=== PATIENT | male | born 1960 | race African-American/Black ===

== ENCOUNTER → 2022-03-07 13:06 | Outpatient (BNVA) | payer OTHER, SELFPAY | PROVIDERS: Visit Provider Psychiatry & Neurology Neurology | DX: G20 Parkinson's disease (principal); R44.3 Hallucinations, unspecified | CPT/HCPCS: 99212 ==

== ENCOUNTER → 2023-01-02 08:55 | Outpatient (BNVA) | payer OTHER, SELFPAY | PROVIDERS: PCP Nurse Practitioner Family; Visit Provider Nurse Practitioner Family | DX: G20 Parkinson's disease (principal); R44.3 Hallucinations, unspecified; R26.9 Unspecified abnormalities of gait and mobility; R29.898 Other symptoms and signs involving the musculoskeletal system | CPT/HCPCS: Q3014 ==

== ENCOUNTER 2023-12-11 11:37 | Outpatient (AMB) | payer OTHER, SELFPAY ==
--- NOTE | 2023-12-11 11:37 | MHC.OFFVIS ---
Intake Visit Reasons: Follow up - confirmed Intake Note: Patient presents f/u. Allergies No Known Allergies Allergy (Verified 12/11/23 11:38) Medication List - Last Reconciled 12/11/23 by CHING Olivier albuterol sulfate 90 mcg/actuation (Ventolin HFA) 0 mcg inhalation carbidopa-levodopa 50-200 mg ER 1 tab PO 6 times a day; divide evenly over waking hours 30 days cholecalciferol (vitamin D3) 50 mcg PO DAILY clonazepam 0.5 mg PO BID 30 days clonazepam 1 mg PO BEDTIME 30 days cyanocobalamin (vitamin B-12) 0 mcg PO entacapone 200 mg orally 5 x's per day; Take w/ Carbidopa-Levodopa (1st 5 doses of the day) 30 days furosemide 40 mg PO DAILY hydralazine 25 mg PO QID lisinopril 20 mg PO DAILY methadone 95 mg PO DAILY PRN metoprolol succinate ER 50 mg PO DAILY omeprazole 40 mg PO QAM polyethylene glycol 3350 (Gavilax) grams PO ropinirole 1 mg PO QID trazodone 25 mg (1/2 x 50 mg) PO BEDTIME 30 days HPI Comments Details: 63-yr-old male presents for f/u televideo visit, via [employer]. Pt is accompanied by his . Pt reports he had a hospitalization last summer for PNA, and then had a 4 month rehab stay- he came home in May 2023. He has been home since then. Pt's primary concerns are: He continues to have BLE stiffness, some days worse than others. He is not currently doing PT. Pt's current PD medication regimen: CD-LD ER 50-200mg 5 x's per day. Comtan 200mg QID. Ropinirole 1mg qid. Do medication effects last between doses: Does not notice Wakes up at 7am, starts CD-LD 8am, 12pm, 4pm, 8pm, 12am- when he goes to bed. Eats at different times- sometimes doesn't eat breakfast, but does eat later. He never received the Nourianz- was not covered, so Comtan was started instead. ADL's: Needs some help from his . Swallowing: Some- when eating food- so has to be careful to eat slwoly and chew his food well. Drooling: Denies Orthostatic lightheadedness: Sometimes in the morning may feel dizzy. Constipation: Sometimes- uses miralax which helps. Urinary symptoms: No new issues. Tremor: Some tremor- but not bothersome. Dyskinesia: Can have this at times- not bothersome- when this happens his stiffness is better. Stiffness: In The legs mostly. Gait changes: No changes Freezing: Denies Falls: None since he left the rehab in May. Mood: Ok Hallucinations: May see something on the floor. Memory: Maybe not as good. States he may call his , and forget why he called her. Sleep: Varies. Denies REM sleep behaviors. Exercise: He tries to do some exercises at home- has some weights, walks up and down the stairs. [facility] Medical History Asthma COPD (chronic obstructive pulmonary disease) Hallucination HTN (hypertension) Opioid abuse Family History Sister Cancer Sister Dialysis patient Diabetes Social History Household Members: Spouse Housing: House Alcohol intake: never Patient Tobacco Use Status: Former Tobacco user Tobacco use type: Cigarette Review of Systems Const All systems reviewed & are unremarkable except as noted in HPI and below Physical Exam Const General: cooperative and no acute distress Resp Effort & Inspection: normal respiratory effort and able to speak in complete sentences Neuro Other: General: A&O x's 3 Expression: Decreased expression and blink Voice: Soft, mild bradyphrenia Tremor: Mild chin tremor Tone: not assessed Dyskinesia: None observed FFM: Bradykinesia Foot taps: not assessed Gait: unable to assess, pt standing. Psych: Pleasant affect. Telehealth Telehealth Telehealth Platform: [employer] Location of provider rendering services: practice address Location of patient: address on file Patient Identification confirmed using: Name, : Yes Telehealth method: video Patient verbally consented to treatment: Yes Patient verbally consented to billing insurance company: Yes Patient informed of any privacy concerns related to visit: Yes Minutes spent on Phone/Video with Pt.: 38 Assessment & Plan Assessment & Plan (1) Parkinson's disease with dyskinesia: Code(s): G20.B1 - Parkinson's disease with dyskinesia, without mention of fluctuations Category: Medical (2) Rigidity: Code(s): R29.898 - Other symptoms and signs involving the musculoskeletal system Category: Medical (3) Gait difficulty: Code(s): R26.9 - Unspecified abnormalities of gait and mobility Category: Medical (4) Hallucination: Code(s): R44.3 - Hallucinations, unspecified Category: Medical Plan Check labs as ordered- pt may come into clinic to do have labs done. ? Again increase CD-LD ER 50-200mg from 1 tab 5 x's per day to 1 tab 6 x's per day (take every 3-3.5 hrs x's 5 tabs and last tab daily at 12am)- to reduce bradykinesia (stiffness). Increase Entacapone 200mg from 1 tab 4 x's per day to 1 tab 5 x's per day (take with CD-LD). Continue Ropinirole 1mg- 1 tab 4 x's per day Continue Trazodone 25mg daily at bedtime- for sleep. Continue Clonazepam 0.5mg 2 x's per day and 1mg daily at bedtime- for REM sleep behaviors and hallucinations. Mirialax 17 gm daily as needed for constipation. Monitor for hallucinations, as pt has stopped Geodon. Stop Nourianz 20mg-was not covered by insurance. Continue regular physical activity. Consider home PT if stiffness worsens. f/u in 6 months or sooner prn. Medications: Changed From entacapone (Comtan) Take w/ Carbidopa-Levodopa (1st 4 doses of the day) 200 mg PO QID 30 days 120 tabs 6RF To entacapone 200 mg orally 5 x's per day; Take w/ Carbidopa-Levodopa (1st 5 doses of the day) 30 days 150 tabs 6RF Discontinued nitrofurantoin macrocrystal must administer with a meal/food Discontinued Reason: Patient Completed Course 100 mg PO QID 10 days 40 caps 0RF istradefylline (Nourianz) Discontinued Reason: Insurance Denied 20 mg PO DAILY 30 days 30 tabs 6RF Coding Level of Care Code Tele Est Pt Level 4 (14574) Complex EM visit Add On G2211 Diagnoses Parkinson's disease with dyskinesia G20.B1 Rigidity R29.898 Gait difficulty R26.9 Hallucination R44.3
== END 2023-12-11 16:32 | disposition home or self-care (01) ==
LOC: HO.HSMS 11:37
PROVIDERS: PCP Nurse Practitioner Family; Visit Provider Nurse Practitioner Family
DX: G20.B1 Parkinson's disease with dyskinesia, without mention of fluctuations (principal); R29.898 Other symptoms and signs involving the musculoskeletal system; R26.9 Unspecified abnormalities of gait and mobility; R44.3 Hallucinations, unspecified
CPT/HCPCS: 99214; G2211

== ENCOUNTER → 2023-12-11 11:37 | Outpatient (BNVA) | payer OTHER, SELFPAY | PROVIDERS: PCP Nurse Practitioner Family; Visit Provider Nurse Practitioner Family ==

== ENCOUNTER 2024-07-30 11:15 | Outpatient (AMB) | payer OTHER, SELFPAY ==
--- NOTE | 2024-07-30 11:39 | A.OFFVIS_ITS ---
Intake Visit Reasons: Follow up Intake Note: patient presents for folllow up. Allergies No Known Allergies Allergy (Verified 07/30/24 11:43) Medication List - Last Reconciled 07/30/24 by CHING Olivier albuterol sulfate 90 mcg/actuation (Ventolin HFA) 0 mcg inhalation carbidopa-levodopa 50-200 mg ER 1 tab PO 6 times a day; divide evenly over waking hours 30 days cholecalciferol (vitamin D3) 50 mcg PO DAILY clonazepam 0.5 mg PO BID 30 days clonazepam 1 mg PO BEDTIME 30 days cyanocobalamin (vitamin B-12) 0 mcg PO entacapone 200 mg orally 5 x's per day; Take w/ Carbidopa-Levodopa (1st 5 doses of the day) 30 days furosemide 40 mg PO DAILY hydralazine 25 mg PO QID lisinopril 20 mg PO DAILY methadone 95 mg PO DAILY PRN metoprolol succinate ER 50 mg PO DAILY omeprazole 40 mg PO QAM polyethylene glycol 3350 (Gavilax) grams PO ropinirole 1 mg PO QID trazodone 25 mg (1/2 x 50 mg) PO BEDTIME 30 days HPI Comments Details: 63-yr-old male presents for f/u visit of Parkinson's. Pt is accompanied by his . Pt reports he has been having increasing BLE stabbing pains. Sleeping with his legs elevated helps some. Denies back pain, bothersome LE swelling, skin discoloration. Pt's current PD medication regimen: CD-LD ER 50-200mg 6 x's per day. Comtan 200mg QID. Ropinirole 1mg qid. Do medication effects last between doses: Does not notice Wakes up at 7am, starts CD-LD 8am, 12pm, 4pm, 8pm, 11pm, 2am- when he goes to bed. Eats at different times- sometimes doesn't eat breakfast, but does eat later. ADL's: Needing assist Swallowing: Sometimes- he has to follow food w/ water which helps. Drooling: Sometimes at night. Orthostatic lightheadedness: Sometimes.. Constipation: Sometimes. Miralax prn does not seem to help. OTC Mag citrate helps some. Urinary symptoms: No new issues, but urine is dark yellow at times. Tremor: Some tremor- but not bothersome. Dyskinesia: Is overall dyskinetic- not bothersome- he prefers to be dyskinetic rather than stiff. Stiffness: In his legs mostly. Gait changes: States walking is ok- he can do the stairs ok some days. Freezing: Denies Falls: None since he left the rehab in May. Mood: Ok Hallucinations: May see something white, like a handkerchief in the air at night. Memory: Can be good and bad . Asks his for something and then forgets he did. Sleep: Varies. For REM sleep behaviors- may talk, sit up, or fight in his sleep- but does not leave the bed. Exercise: He tries to do some exercises at home- has some weights, walks up and down the stairs. [facility] Medical History Hallucination Asthma COPD (chronic obstructive pulmonary disease) HTN (hypertension) Opioid abuse Family History Sister Cancer Sister Dialysis patient Diabetes Social History Household Members: Spouse Housing: House Alcohol intake: never Patient Tobacco Use Status: Former Tobacco user Tobacco use type: Cigarette Physical Exam Const General: cooperative and no acute distress Resp Effort & Inspection: normal respiratory effort and able to speak in complete sentences Neuro Other: General: A&O x's 3 Expression: Decreased expression and blink Voice: Soft, mild bradyphrenia Tremor: Mild chin tremor Tone: not assessed Dyskinesia: None observed FFM: Bradykinesia Foot taps: not assessed Gait: unable to assess, pt standing. Psych: Pleasant affect. Assessment & Plan Assessment & Plan (1) Parkinson's disease with dyskinesia: Code(s): G20.B1 - Parkinson's disease with dyskinesia, without mention of fluctuations Category: Medical (2) Paresthesia of both lower extremities: Code(s): R20.2 - Paresthesia of skin Category: Medical (3) Anemia: Code(s): D64.9 - Anemia, unspecified Category: Medical (4) Rigidity: Code(s): R29.898 - Other symptoms and signs involving the musculoskeletal system Category: Medical (5) Gait difficulty: Code(s): R26.9 - Unspecified abnormalities of gait and mobility Category: Medical (6) Hallucination: Code(s): R44.3 - Hallucinations, unspecified Category: Medical Plan For BLE pareshesias: Check labs. Trial Gabaoentin 100mg cap- 1-3 caps qhs or 1 cap tid. ? Continue CD-LD ER 50-200mg 1 tab6 x's per day.. Continue Entacapone 200mg from 1 tab 4 x's per day (take with CD-LD). Continue Ropinirole 1mg- 1 tab 4 x's per day Continue Trazodone 25mg daily at bedtime- for sleep. Continue Clonazepam 0.5mg 2 x's per day and 1mg daily at bedtime- for REM sleep behaviors and hallucinations. Try taking Mirialax 17 gm qod scheduled and daily as needed for constipation. Continue regular physical activity. f/u in 6 months or sooner prn. Orders: Orders Comprehensive Met. Panel 07/30/24 R20.2 - Paresthesia of skin, R44.3 - Hallucinations, unspecified, D64.9 - Anemia, unspecified Methylmalonic Acid 07/30/24 R20.2 - Paresthesia of skin, R44.3 - Hallucinations, unspecified, D64.9 - Anemia, unspecified Homocysteine 07/30/24 R20.2 - Paresthesia of skin, R44.3 - Hallucinations, unspecified, D64.9 - Anemia, unspecified TSH reflex Free T4 07/30/24 R20.2 - Paresthesia of skin, R44.3 - Hallucinations, unspecified, D64.9 - Anemia, unspecified Vitamin B12 and Folate 07/30/24 R20.2 - Paresthesia of skin, R44.3 - Hallucinations, unspecified, D64.9 - Anemia, unspecified Folate 07/30/24 R20.2 - Paresthesia of skin, R44.3 - Hallucinations, unspecified, D64.9 - Anemia, unspecified Complete Blood Count Auto Diff 07/30/24 R20.2 - Paresthesia of skin, R44.3 - Hallucinations, unspecified, D64.9 - Anemia, unspecified Ferritin 07/30/24 R20.2 - Paresthesia of skin, R44.3 - Hallucinations, unspecified, D64.9 - Anemia, unspecified IRON PROFILE 07/30/24 R20.2 - Paresthesia of skin, R44.3 - Hallucinations, unspecified, D64.9 - Anemia, unspecified Magnesium 07/30/24 R20.2 - Paresthesia of skin, R44.3 - Hallucinations, unspecified, D64.9 - Anemia, unspecified Medications: New gabapentin 100 - 300 mg (1 - 3 x 100 mg) PO BEDTIME 90 caps 3RF 30 days Changed From ropinirole 1 mg PO QID 360 tabs 2RF To ropinirole 1 mg PO QID 360 tabs 2RF 90 days From carbidopa-levodopa 50-200 mg ER 1 tab PO 6 times a day; divide evenly over waking hours 30 days 180 tabs 6RF To carbidopa-levodopa 50-200 mg ER 1 tab PO 6 times a day; divide evenly over waking hours 730 tabs 2RF 90 days From entacapone 200 mg orally 5 x's per day; Take w/ Carbidopa-Levodopa (1st 5 doses of the day) 30 days 150 tabs 6RF To entacapone 200 mg PO QID 360 tabs 2RF 90 days Coding Level of Care Code Est Pt Level 4 (68394) Complex EM visit Add On G2211 Diagnoses Parkinson's disease with dyskinesia G20.B1 Paresthesia of both lower extremities R20.2 Anemia D64.9 Rigidity R29.898 Gait difficulty R26.9 Hallucination R44.3
== END 2024-07-30 13:40 | disposition home or self-care (01) ==
PROVIDERS: PCP Nurse Practitioner Family; Visit Provider Nurse Practitioner Family
DX: G20.B1 Parkinson's disease with dyskinesia, without mention of fluctuations (principal); R20.2 Paresthesia of skin; D64.9 Anemia, unspecified; R29.898 Other symptoms and signs involving the musculoskeletal system; R26.9 Unspecified abnormalities of gait and mobility; R44.3 Hallucinations, unspecified
CPT/HCPCS: 99214; G2211

== ENCOUNTER → 2024-07-30 11:15 | Outpatient (BNVA) | payer OTHER, SELFPAY | PROVIDERS: PCP Nurse Practitioner Family; Visit Provider Nurse Practitioner Family | DX: G20.B1 Parkinson's disease with dyskinesia, without mention of fluctuations (principal); R20.2 Paresthesia of skin; R29.898 Other symptoms and signs involving the musculoskeletal system; R26.9 Unspecified abnormalities of gait and mobility; R44.3 Hallucinations, unspecified; D64.9 Anemia, unspecified | CPT/HCPCS: 99212 ==

== ENCOUNTER → 2024-09-08 23:59 | Outpatient (BNV) | payer OTHER, SELFPAY | PROVIDERS: PCP Nurse Practitioner Family; Visit Provider Psychiatry & Neurology Neurology | DX: R13.12 Dysphagia, oropharyngeal phase (principal); R27.8 Other lack of coordination; F33.0 Major depressive disorder, recurrent, mild; G20.B2 Parkinson's disease with dyskinesia, with fluctuations | CPT/HCPCS: G0179 ==

== ENCOUNTER 2025-02-15 14:26 | Outpatient (AMB) | payer OTHER, SELFPAY ==
--- NOTE | 2025-02-15 14:18 | A.OFFVIS_ITS ---
Intake Visit Reasons: Infusion Pump Discussion Intake Note: Patient presents for call to discuss infusion pump. Accompanied by: Spouse Allergies morphine Allergy (Mild, Verified 02/15/25 14:22) Itching Medication List - Last Reconciled 02/15/25 by CHING Olivier albuterol sulfate 90 mcg/actuation (Ventolin HFA) 0 mcg inhalation carbidopa-levodopa 50-200 mg ER 1 tab PO 6 times a day; divide evenly over waking hours 90 days cholecalciferol (vitamin D3) 50 mcg PO DAILY clonazepam 0.5 mg PO BID 30 days clonazepam 1 mg PO BEDTIME 30 days cyanocobalamin (vitamin B-12) 0 mcg PO entacapone 200 mg PO QID 90 days furosemide 40 mg PO DAILY gabapentin 100 - 300 mg (1 - 3 x 100 mg) PO BEDTIME 30 days hydralazine 25 mg PO QID lisinopril 20 mg PO DAILY methadone 95 mg PO DAILY PRN metoprolol succinate ER 50 mg PO DAILY omeprazole 40 mg PO QAM polyethylene glycol 3350 (Gavilax) grams PO ropinirole 0.75 mg (3 x 0.25 mg) PO QID 30 days trazodone 25 mg (1/2 x 50 mg) PO BEDTIME 30 days HPI Comments Details: 64-yr-old male presents for f/u televideo visit of Parkinson's. Pt is accompanied by his . Patient's primary concerns today, include increasing generalized dyskinesias, variable sleep due to the dyskinesias, confusion, and constipation.? Patient and had reached out to the office prior to the appointment with these concerns, and patient has been referred to GI.? Additionally, patient was advised to consider newer PD treatment options, such as subcutaneous infusions of carbidopa levodopa or apomorphine. ?Patient states he was open to these, however he did not believe it would be covered by his insurance. Pt's current PD medication regimen: CD-LD ER 50-200mg 6 x's per day. Comtan 200mg QID. Ropinirole 1mg qid. Do medication effects last between doses: He has bothersome wearing off between doses, and thus has greater than 3 hours of off time throughout the day. ADL's: Needing assist Swallowing: Endorses intermittent swallowing difficulty Drooling: Sometimes at night. Orthostatic lightheadedness: Sometimes.. Constipation: Continues to have constipation, using bowel regimen with variable effect Urinary symptoms: No new issues. Tremor: Some tremor- but not bothersome. Dyskinesia: He is increasingly dyskinetic. He has previously preferred to be dyskinetic rather than stiff. Stiffness: In his legs mostly. Gait changes: States walking is ok Freezing: Unsure Falls: Denies recent falls Mood: Ok Hallucinations: Occasional non bothersome, visual hallucinations, such as see ing a light. Memory: reports some increased confusion Sleep: Sleep is variable. Some nights not going to sleep until 4 -5 in the morning. For REM sleep behaviors- may talk, sit up, or fight in his sleep- but does not leave the bed. Exercise: He tries to do some exercises at home. [facility] Medical History Hallucination Asthma COPD (chronic obstructive pulmonary disease) HTN (hypertension) Opioid abuse Family History Sister Cancer Sister Dialysis patient Diabetes Social History Household Members: Spouse Housing: House Alcohol intake: never Patient Tobacco Use Status: Former Tobacco user Tobacco use type: Cigarette Physical Exam Const General: cooperative and no acute distress Resp Effort & Inspection: normal respiratory effort and able to speak in complete sentences Neuro Other: General: A&O x's 3 Expression: Decreased expression and blink Voice: Soft, mild bradyphrenia Tremor: No visible tremor Tone: Not assessed Dyskinesia: Gerardo generalized dyskinesia with cervical and thoracic extension FFM: Dyskinetic Foot taps: not assessed Gait: unable to assess Psych: Pleasant affect. Telehealth Telehealth Telehealth Platform: [email or web address] Location of provider rendering services: practice address Location of patient: address on file Patient Identification confirmed using: Name, : Yes Telehealth method: video Patient verbally consented to treatment: Yes Patient verbally consented to billing insurance company: Yes Patient informed of any privacy concerns related to visit: No Minutes spent on Phone/Video with Pt.: 16 Assessment & Plan Assessment & Plan (1) Parkinson's disease with dyskinesia: Code(s): G20.B1 - Parkinson's disease with dyskinesia, without mention of fluctuations Category: Medical Qualifiers: Fluctuating manifestations: with fluctuating manifestations Qualified Code(s): G20.B2 - Parkinson's disease with dyskinesia, with fluctuations (2) Paresthesia of both lower extremities: Code(s): R20.2 - Paresthesia of skin Category: Medical (3) Rigidity: Code(s): R29.898 - Other symptoms and signs involving the musculoskeletal system Category: Medical (4) Gait difficulty: Code(s): R26.9 - Unspecified abnormalities of gait and mobility Category: Medical (5) Hallucination: Code(s): R44.3 - Hallucinations, unspecified Category: Medical (6) Constipation: Code(s): K59.00 - Constipation, unspecified Category: Medical (7) Dysphagia: Code(s): R13.10 - Dysphagia, unspecified Category: Medical Plan For BLE pareshesias: Continue Gabaoentin 100mg cap- 1-3 caps qhs or 1 cap tid. For Parkinson's: As patient is having greater than 3 hours of bothersome off time per day interspersed with marked bothersome dyskinesia, which raises risk for injury for patient, patient would benefit from optimizing his Parkinson's medication regimen through more sustained medication administration method that would bypass GI metabolism, which is likely negatively impacted by patient's bothersome constipation symptoms. * At this time, we will reduce the ropinirole from 1 mg q.i.d. to 0.75 mg q.i.d.- in hopes this lessens dyskinesias without worsening off time. * Additionally, patient is advised to start Onapgo, continuous subcutaneous apomorphine infusion. * Onapgo starting dose:? 0.5 mg/hour times 16 hours per day, may slowly titrate up by 0.5 mg up to a max of 4 mg per day.? * Bolus dose to be held until optimal continuous infusion dose obtain, then bolus dose 0.5 mg 3 times per day as needed for off time. * Discussed administration, risks and benefits related to subcutaneous Onapgo infusion. * Patient advised we will need to seek insurance prior authorization for Onapgo. 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 * Once optimal Onapgo continuous dose is achieved, we will begin to further wean patient off of some of his oral dopaminergic therapies, starting with the ropinirole. * Continue CD-LD ER 50-200mg 1 tab6 x's per day.. * Continue Entacapone 200mg from 1 tab 4 x's per day (take with CD-LD). * Continue Trazodone 25mg daily at bedtime- for sleep. * Continue Clonazepam 0.5mg 2 x's per day and 1mg daily at bedtime- for REM sleep behaviors and hallucinations. * Continue bowel regimen, and GI consult as ordered Continue regular physical activity. We will follow-up upon review of above, and in 3 months or sooner prn. Medications: New ropinirole 0.75 mg (3 x 0.25 mg) PO QID 360 tabs 6RF 30 days Discontinued ropinirole Discontinued Reason: Doctor's Order 1 mg PO QID 90 days 360 tabs 2RF Coding Level of Care Code Tele Est Pt Level 4 (05085) Diagnoses Parkinson's disease with dyskinesia and fluctuating manifestations G20.B2 Fluctuating manifestations: with fluctuating manifestations Paresthesia of both lower extremities R20.2 Rigidity R29.898 Gait difficulty R26.9 Hallucination R44.3 Constipation K59.00 Dysphagia R13.10
--- OUTSIDE RECORDS SUMMARY | 2025-02-15 15:05 | XMS_ITS | Clinical Summary ---
Author Organization [facility] Address [address] [place] [id number] Phone Care Team Providers Care Round Boner Name Role Phone Alfonso Hoang MD Primary Care Provider Social History Tobacco Use Types Packs/Day Years Used Date Smoking Tobacco: Never Assessed Education Answer Date Recorded Are you interested in more education? Not on elly e 02/19/2023 Are you concerned about learning? Not on file 02/19/2023 No 02/19/2023 No 02/19/2023 Digital Access Answer Date Recorded No 02/19/2023 No 02/19/2023 Reliable internet access at home? Not on file 02/19/2023 Device with a working camera? Not on file Sex and Gender Information Value Date Recorded Sex Assigned at Not on file Legal Sex Male 9:07 AM EDT Gender Identity Not on file Sexual Orientation Not on file Plan of Treatment Not on file Medical Devices Not on file Care Teams Round Boner Relationship Specialty Start Date End Date Alfonso Hoang MD [address] [place] [address] [address] [place] [address] [email or web address] PCP - General Family Medicine 02/19/23 Additional Source Comments The information contained in this document represents components of the legal health record. It is not the complete legal health record.[facility]
--- OUTSIDE RECORDS SUMMARY | 2025-02-15 15:05 | XMS_ITS | Clinical Summary ---
Author Organization [facility] Address [address] [place] [address] Care Team Providers Care Lidding Machine Operator Name Role Phone Seven Borrero ONCOLOGY RN Primary Care Prov ider Source Comments PLEASE NOTE, if this patient is a minor, it may be UNLAWFUL to discuss sensitive information that is contained in these records (such as FAMILY PLANNING, MENTAL HEALTH or SUBSTANCE ABUSE) with the minor patient's parent or other person without the patient's specific authorization.[facility] Allergies Active Allergy Reactions Criticality Noted Date Comments Morphine 08/05/2023 Medications Comp.Stocking,Th igh,Long,X-Lrg miscIndications: Lymphedema of both lower extremities 1 Each by miscellaneous route once daily. Use daily. Dx: chronic lower leg lymphedema. 2 pairs. 2 Each 0 01/31/20 15 Active sennosides (SENNA) 8.6 mg tabletIndication s:Constipation due to opioid therapy Take 1 Tab by mouth nightly at bedtime. 02/02/20 16 Active nebulizer and compressorIndica tions:COPD with asthma and status asthmaticus ([facility]) UAD x 99 years; dispense nebulizer and tubing and mouthpiece/mask 1 Each 08/01/19 21 Active methadone (DOLOPHINE) 10 mg tabletIndication s:Opioid dependence in remission ([facility]) On 95mg daily per methadone clinic. 11/28/19 22 Active ferrous sulfate 325 mg (65 mg iron) tablet Take 1 Tablet by mouth once daily with breakfast 90 Tablet 3 03/11/20 22 Active GAVILAX 17 gram/dose powderIndication s:Constipation, unspecified constipation type DISSOLVE 17GRAMS (1 CAPFUL) IN 8 OUNCES (1 GLASS) OF WATER AND TAKE BY MOUTH 510 g 5 01/16/20 23 Active entacapone (COMTAN) 200 mg tablet TAKE 1 TABLET BY MOUTH FOUR TIMES A DAY ALONG WITH CARBIDOPA-LEVODOP A (1ST 4 DOSES OF THE DAY) 01/10/20 23 Active traZODone (DESYREL) 50 mg tablet 01/14/20 23 Active rOPINIRole (REQUIP) 1 mg tablet Take 1 mg by mouth 4 (four) times daily 11/21/19 23 Active clonazePAM (KLONOPIN) 0.5 mg tablet TAKE 1 TABLET BY MOUTH TWICE A DAY (IN THE MORNING AND AFTERNOON) 12/26/19 23 Active clonazePAM (KLONOPIN) 1 mg tablet TAKE 1 TABLET BY MOUTH 30 MINUTES BEFORE BEDTIME FOR 30 DAYS 12/28/19 23 Active ipratropium-albu teroL (DUONEB) 0.5 mg-3 mg(2.5 mg base)/3 mL nebulizer solutionIndicati ons:COPD with asthma and status asthmaticus ([facility]) Use every 4-6 hours as needed for SOB 90 mL 2 08/05/19 24 Active carbidopa-levodo pa (SINEMET CR) 50-200 mg per tablet Take 1 Tablet by mouth 6 (six) times daily 540 Tablet 1 08/05/19 24 Active MISCELLANEOUS MEDICAL SUPPLY MISCIndications: COPD with asthma and status asthmaticus ([facility]),Babar on's disease with fluctuating manifestations, unspecified whether dyskinesia present ([facility]),Urinary incontinence, unspecified type 1 box large gloves for daily use x99 years 1 Each 01/07/20 24 Active MISCELLANEOUS MEDICAL SUPPLY MISCIndications: COPD with asthma and status asthmaticus ([facility]),Babar on's disease with fluctuating manifestations, unspecified whether dyskinesia present ([facility]),Urinary incontinence, unspecified type 2 packs of incontinence wipes to use daily x99 years 2 Each 11 01/07/20 24 Active MISCELLANEOUS MEDICAL SUPPLY MISCIndications: COPD with asthma and status asthmaticus ([facility]),Babar on's disease with fluctuating manifestations, unspecified whether dyskinesia present ([facility]),Urinary incontinence, unspecified type 2 reusable bed liners x99 years 2 Each 01/07/20 24 Active MISCELLANEOUS MEDICAL SUPPLY MISCIndications: COPD with asthma and status asthmaticus ([facility]),Babar on's disease with fluctuating manifestations, unspecified whether dyskinesia present ([facility]),Urinary incontinence, unspecified type 3 packs of right fit underwear size 3x x99 years 3 Each 01/07/20 24 Active cyanocobalamin (VITAMIN B-12) 1,000 mcg tablet Take 1 Tablet by mouth once daily 90 Tablet 3 01/13/20 24 Active MISCELLANEOUS MEDICAL SUPPLY MISCIndications: COPD with asthma and status asthmaticus ([facility]),Babar on's disease with fluctuating manifestations, unspecified whether dyskinesia present ([facility]),Urinary incontinence, unspecified type 2 boxes medium gloves daily use x99 years 2 Each 01/14/20 24 Active gabapentin (NEURONTIN) 100 mg capsule TAKE 1 TO 3 CAPSULES ORALLY BEDTIME FOR 30 DAYS 10/12/19 25 Active atorvastatin (LIPITOR) 20 mg tablet Take 1 Tablet by mouth once daily 90 Tablet 11/17/19 25 Active cholecalciferol (VITAMIN D-3) 50 mcg (2,000 unit) capsule Take 1 Capsule by mouth once daily 90 Capsule 11/17/19 25 Active fluticasone-umec lidin-vilanter (TRELEGY ELLIPTA) 200-62.5-25 mcg dsdvIndications: COPD with asthma and status asthmaticus ([facility]) Inhale 1 Puff into the lungs daily 3 Each 11/17/19 25 Active furosemide (LASIX) 40 mg tabletIndication s:Right leg swelling,Swellin g of right upper extremity Take 1 Tablet by mouth once daily 90 Tablet 3 11/17/19 25 Active hydrALAZINE (APRESOLINE) 25 mg tabletIndication s:Essential hypertension Take 1 Tablet by mouth 4 (four) times daily 360 Tablet 3 11/17/19 25 Active lisinopriL 40 mg tablet Take 1 Tablet by mouth once daily 90 Tablet 3 11/17/19 25 Active metoprolol succinate XL (TOPROL-XL) 50 mg 24 hr tabletIndication s:Essential hypertension Take 1 Tablet by mouth daily 90 Tablet 3 11/17/19 25 Active albuterol HFA 90 mcg/actuation inhaler INHALE 2 PUFFS EVERY 6 HOURS NEEDED FOR WHEEZING OR SHORTNESS OF BREATH. 54 Each 1 12/16/19 25 Active Active Problems Problem Noted Date Diagnosed Date Urinary incontinence 01/07/2024 Anxiety 01/14/2023 Chronic heart failure with p reserved ejection fraction ([facility]) 01/18/2022 Overview (01/18/2022): Normal echo December 2021 Hx of colonoscopy 09/30/2017 Overview (09/30/2017): Done 12/11/12 @normal colon and cecum - repeat 7-10 years Umbilical hernia without obstruction and without gangrene 10/07/2016 Overview (10/07/2016): Continue to monitor as no pain and reducible. Parkinson's disease ([facility]) 07/20/2015 Overview (08/16/2015): Seen by Neuro Dr. Smith 08/03/15 and started on carbidopa-levodopa 25/100 mg bid. Lymphedema of both lower extremities 12/02/2013 Erectile dysfunction 08/03/2013 Leg cramps 05/21/2013 Vitamin D deficiency 05/13/2012 Overview (04/12/2013): =18. Right knee pain 04/04/2011 Overview (04/12/2013): MRI 04/02/11 revealed tear/degen. Medial meniscus(posterior horn) & cartilage loss x 3 compartments. HTN (hypertension) 07/04/2008 Hyperlipidemia 07/04/2008 COPD with asthma 07/04/2008 Overview (11/27/2021): November 2021: Not currently seeing pulm, does not want to Hepatitis C 06/28/2008 Overview (04/12/2013): Undetectable Viral Load Opiate dependence on methadone maintenance Overview (04/12/2013): Start methadone 12/25/11. Resolved Problems Problem Noted Date Diagnosed Date Resolved Date Venous stasis ulcer of left lower extremity 07/20/2015 11/16/2024 Overview (10/26/2016): F/u wound care clinic at [facility] with Dr. Soria. S/p left lower leg wound irrigation and debridement with application of neg pressure wound therapy via Dr. Brownlee 10/14/16 at [facility] GERD (gastroesophageal reflux disease) 06/28/2014 11/16/2024 Morbid obesity ([facility]) 07/04/2008 11/16/2024 Encounters Date Type Department Care Team Description 11/19/2024 Results Follow-Up [address] [address] Seven Borrero FNP 11/16/2024 3:20 PM EDT Office Visit [address] [address] Seven Borrero FNP from Last 3 Months Immunizations Immunization Administration Dates Next Due Flu, Preservative Free 11/27/2021,2019,04/12/2019,05/25,04/29/2017,04/26/2016 Hep A, adult 07/08/2008 History Of Varicella 07/08/2008 INFLUENZA, SEASONAL, INJECTABLE 05/21/2014,04/12 MMR (MMR II/Priorix) 07/08/2008 Moderna COVID-19 Vaccine, re d cap blue label, 12+ Primary Series 11/27/2021 Novel [id number], injectable 07/26/2009 PNEUMOCOCCAL CONJUGATE PCV 13 08/13/2011 PNEUMOCOCCAL CONJUGATE PCV 2 0 (Prevnar 20) 11/16/2024 PNEUMOCOCCAL POLYSACCHARIDE PPV23 (Pneumovax 23) 06/03/2016 Pfizer COVID-19 (Comirnaty), Mrna, Lnp-s, Pf, Erasmo-sucrose, 30 Mcg/0.3 Ml, 12yr+ 11/16/2024 TDAP 03/31/2008 Td (adult), 5 Lf tetanus tox oid (Tenivac), preservative free 12/11/2015 ZOSTER VACCINE, RECOMBINANT (SHINGRIX) Social History Tobacco Use Types Packs/Day Years Used Date Smoking Tobacco: Former Cigarettes Q uit: 02/19/2013 Smokeless Tobacco: Never Tobacco Cessation:Counseling Given: Not Answered Alcohol Use Standard Drinks/Week Comments No 0 (1 standard drink = 0.6 oz pur e alcohol) Social Connections Answer Date Recorded Connectedness 0 01/14/2023 Financial Resource Strain Answer Date R ecorded Financial Resource Strain 0 2022 Stress Answer Date Recorded Stress 0 01/14/2023 Physical Activity Answer Date Recorded Physical Activity 0 03/13/2019 Food Insecurity Answer Date Recorded Food 0 01/14/2023 Transportation Needs Answer Date Record ed Transportation 0 01/14/2023 Housing Stability Answer Date Recorded Housing 0 01/14/2023 Safety and Environment Answer Date Jorge A rded Safety 0 01/14/2023 Utilities Answer Date Recorded Utilities 0 01/14/2023 Employment Answer Date Recorded Employment 0 03/13/2019 Sex and Gender Information Value Date Recorded Sex Assigned at Male 04/29/2017 11:11 AM PDT Legal Sex Male 11:36 AM PDT Gender Identity Male 04/29/2017 11:11 AM PDT Sexual Orientation Straight 04/29/2017 11 :11 AM PDT Last Filed Vital Signs Vital Sign Reading Time Taken Comments Blood Pressure 123/74 11/16/2024 3:46 PM EDT Pulse 69 11/16/2024 3:46 PM EDT Temperature 36.2 C (97.1 F) 11/16/2024 3:46 PM EDT Respiratory Rate 18 11/16/2024 3:46 PM EDT Oxygen Saturation 96% 11/27/2021 4:35 PM EDT Inhaled Oxygen Concentration - - Weight 95.6 kg (210 lb 12.8 oz) 11/16/2024 3:46 PM EDT Height 182.9 cm (6') 11/27/2021 4:35 PM EDT Body Mass Index 28.59 11/27/2021 4:35 PM EDT Plan of Treatment Health Maintenance Due Date Last Done Comments Anxiety Screening 1960 Medicare Annual Wellness Visit 09/18/1977 CT Colonography 09/18/2004 FIT/gFOBT 09/18/2004 Fecal DNA 09/18/2004 Flexible Sigmoidoscopy 09/18/2004 Imm-Hepatitis B (1 of 3 - Ri sk 3-dose series) 2019 Colonoscopy 12/11/2022 12/11/2012, 12/11/2012 Colorectal Cancer Screening 12/11/2022 Alcohol and Drug Screen 07/21/2024 08/05/19, 01/14/2023, 08/22/2020, Additional history exists Depression Annual Screen 07/21/2024 08/05/2023, 08/2019 Abdominal Aortic Aneurysm Screening 09/18/2024 Falls Prevention 09/18/2024 Imm-Zoster, Recombinant (2 of 2) 01/11/2025 11/17/19 Imm-Influenza (#1) 2025 11/27/2021, 1 08/18/2020, 05/05/2020, Additional history exists [id number] ( season) 2025 11/16/2024, 03/31/2023, 11/27/2021, Additional history exists Lipid Screening 11/16/2025 11/16/2024, 02/18, 09/29/2017, Additional history exists Tobacco Screening 11/16/2025 11/16/2024 Imm-DTaP/Tdap/Td (3 - Td or Tdap) 12/10/2025 016, 03/31/2008 Diabetes Screening 11/17/2027 11/16/2024, 0 11/16/2024, 02/19/2023, Additional history exists HIV Screening Completed 09/29/2017 Imm-Pneumococcal 50+ Completed 11/16/2024, 06/03/2016, 08/13/2011 Procedures Procedure Name Priority Date/Time Associated Diagnosis Comments OTHER ORDERS SCANNED DOCUMENT 02/07/2025 3:00 AM EDT OTHER ORDERS SCANNED DOCUMENT 02/02/2025 3:00 AM EDT HEMOGLOBIN GLYCOSYLATED A1C Routine 11/16/2024 4:42 PM EDT Examination, medical, general Parkinson's disease with fluctuating manifestations, unspecified whether dyskinesia present (CMS & HHS-HCC) Uncomplicated opioid dependence ([facility]) Other specified abnormal findings of blood chemistry THYROID CASCADING REFLEX PANEL Routine 11/16/2024 4:42 PM EDT Examination, medical, general Parkinson's disease with fluctuating manifestations, unspecified whether dyskinesia present (CMS & HHS-HCC) Uncomplicated opioid dependence (CMS & HHS-HCC) Other abnormal findings on diagnostic imaging of central nervous system LIPID PANEL Routine 11/16/2024 4:42 PM EDT Examination, medical, general Parkinson's disease with fluctuating manifestations, unspecified whether dyskinesia present (CMS & HHS-HCC) Uncomplicated opioid dependence (CMS & HHS-HCC) Other specified abnormal findings of blood chemistry COMPREHENSIVE METABOLIC PANEL Routine 11/16/2024 4:42 PM EDT Examination, medical, general Parkinson's disease with fluctuating manifestations, unspecified whether dyskinesia present (CMS & HHS-HCC) Uncomplicated opioid dependence (CMS & HHS-HCC) BLOOD COUNT COMPLETE AUTO&AUTO DIFRNTL WBC Routine 11/16/2024 4:42 PM EDT Examination, medical, general Parkinson's disease with fluctuating manifestations, unspecified whether dyskinesia present (CMS & HHS-HCC) Uncomplicated opioid dependence (CMS & HHS-HCC) ANTIBODY HIV-1&HIV-2 SINGLE RESULT Routine 09/29/2017 10:21 AM EDT Screening for venereal disease COLONOSCOPY Routine 12/11/2012 from Last 3 Months or Most Recently Relevant to Health Maintenance Results * OTHER ORDERS SCANNED DOCUMENT (02/07/2025 3:00 AM EDT) Only the most recent of2 resultswithin the time period is included. 02/07/2025 3:00 AM EDT Seven Borrero ONCOLOGY RN SCAN OTHER ORDERS Final Result * THYROID CASCADING REFLEX PANEL (11/16/2024 4:42 PM EDT) TSH 0.57 0.40 - 4.50 mIU/L [facility] Blood Blood / Unknown 11/16/2024 4 :42 PM EDT 11/16/2024 4:43 PM EDT Narrative [facility] - 11/18/2024 10:48 AM EDT FASTING:YES PATIENT UNABLE TO VOID; ADVISED TO RETURN FOR COLLECTION. Seven Fajardo Adair ONCOLOGY RN LAB - BLOOD DRAW E dited Result - Final [facility] [address] [address], [employer] [facility] [address] [place] [address] * (ABNORMAL) BLOOD COUNT COMPLETE AUTO&AUTO DIFRNTL WBC (11/16/2024 4:42 PM EDT) WHITE BLOOD CELL COUNT 6.8 3.8 - 10.8 Thousand/ uL [facility] RED BLOOD CELL COUNT 3.46(L) 4.20 - 5.80 Million/u L [facility] HEMOGLOBIN 10.3(L) 13.2 - 17.1 g/dL [facility] HEMATOCRIT 32.9(L) 38.5 - 50.0 % [employer] [facility] MCV 95.1 80.0 - 100.0 fL [facility] [place] [employer] MCH 29.8 27.0 - 33.0 pg [facility] MCHC 31.3(L) 32.0 - 36.0 g/dL [employer] [facility] Comment: For adults, a slight decrease in the calculated MCHC value (in the range of 30 to 32 g/dL) is most likely not clinically significant; however, it should be interpreted with caution in correlation with other red cell parameters and the patient's clinical condition. RDW 13.8 11.0 - 15.0 % [employer] [facility] PLATELET COUNT 252 140 - 400 Thousand/ uL [employer] [facility] MPV 10.3 7.5 - 12.5 fL [employer] [facility] ABSOLUTE NEUTROPHILS 3,862 1,500 - 7,800 cells/uL [employer] [facility] ABSOLUTE LYMPHOCYTES 2,094 850 - 3,900 cells/uL [employer] [facility] ABSOLUTE MONOCYTES 388 200 - 950 cells/uL [employer] [facility] ABSOLUTE EOSINOPHILS 408 15 - 500 cells/uL [employer] [facility] ABSOLUTE BASOPHILS 48 0 - 200 cells/uL [employer] [facility] NEUTROPHILS PCT 56.8 % [facility] LYMPHOCYTES 30.8 % [facility] MONOCYTES 5.7 % [facility] [employer] [facility] EOSINOPHILS 6.0 % [facility] AGNHipscanS [employer] [facility] BASOPHILS 0.7 % [facility] [employer] [facility] Blood Blood / Unknown 11/16/2024 4 :42 PM EDT 11/16/2024 4:43 PM EDT Narrative [facility] - 11/18/2024 10:48 AM EDT FASTING:YES PATIENT UNABLE TO VOID; ADVISED TO RETURN FOR COLLECTION. us Seven Borrero [facility] LAB - BLOOD DRAW E dited Result - Final Performing Organization Address [facility] Co de Phone Number [facility] [address] [address], [employer] [address] [address] * HEMOGLOBIN GLYCOSYLATED A1C (11/16/2024 4:42 PM EDT) HEMOGLOBIN A1C 5.2 <5.7 % [employer] [facility] Comment: For the purpose of screening for the presence of diabetes: <5.7% Consistent with the absence of diabetes 5.7-6.4% Consistent with increased risk for diabetes (prediabetes) > or =6.5% Consistent with diabetes This assay result is consistent with a decreased risk of diabetes. Currently, no consensus exists regarding use of hemoglobin A1c for diagnosis of diabetes in children. According to [place] Diabetes Association (ADA) guidelines, hemoglobin A1c <7.0% represents optimal control in non- diabetic patients. Different metrics may apply to specific patient populations. Standards of Medical Care in Diabetes(ADA). Blood Blood / Unknown 11/16/2024 4 :42 PM EDT 11/16/2024 4:43 PM EDT Narrative [facility] - 11/18/2024 10:48 AM EDT FASTING:YES PATIENT UNABLE TO VOID; ADVISED TO RETURN FOR COLLECTION. us Seven Borrero [facility] LAB - BLOOD DRAW F inal Result Performing Organization Address City/[facility]/ZIP Co de Phone Number [facility] [address] [address], [employer] [facility] [address] [place] [address] * (ABNORMAL) LIPID PANEL (11/16/2024 4:42 PM EDT) CHOLESTEROL, TOTAL 180 <200 mg/dL [facility] HDL CHOLESTEROL 34(L) > OR = 40 mg/dL [employer] [facility] TRIGLYCERIDES 132 <150 mg/dL [facility] LDL-CHOLESTEROL 121(H) 99 mg/dL (calc) [employer] [facility] Comment: Reference range: <100 Desirable range <100 mg/dL for primary prevention; <70 mg/dL for patients with CHD or diabetic patients with > or = 2 CHD risk factors. LDL-C is now calculated using the Abdi calculation, which is a validated novel method providing better accuracy than the Friedewald equation in the estimation of LDL-C. Tommie LOPEZ et al. YARA. 2013;310(19): 2873-6234 (http://education.Zang/faq/ZTN844) CHOL/HDLC RATIO 5.3(H) <5.0 (calc) [employer] [facility] NON-HDL CHOLESTEROL 146(H) <130 mg/dL (calc) [employer] Comment: For patients with diabetes plus 1 major ASCVD risk factor, treating to a non-HDL-C goal of <100 mg/dL (LDL-C of <70 mg/dL) is considered a therapeutic option. Blood Blood / Unknown 11/16/2024 4 :42 PM EDT 11/16/2024 4:43 PM EDT Narrative [facility] - 11/18/2024 10:48 AM EDT FASTING:YES PATIENT UNABLE TO VOID; ADVISED TO RETURN FOR COLLECTION. us Seven HARMANP LAB - BLOOD DRAW F inal Result [facility] [address] [address], [facility] [address] [place] [address] * (ABNORMAL) COMPREHENSIVE METABOLIC PANEL (11/16/2024 4:42 PM EDT) GLUCOSE 94 65 - 99 mg/dL [facility] Comment: Fasting reference interval UREA NITROGEN (BUN) 11 7 - 25 mg/dL [facility] CREATININE (blood) 1.04 0.70 - 1.35 mg/dL [facility] EGFR 80 > OR = 60 mL/min/1. 73m2 [facility] BUN/CREATININE RATIO SEE NOTE: 6 - [facility] Comment: Not Reported: BUN and Creatinine are within reference range. SODIUM 137 135 - 146 mmol/L [facility] POTASSIUM 4.3 3.5 - 5.3 mmol/L [facility] CHLORIDE 102 98 - 110 mmol/L [facility] CARBON DIOXIDE 30 20 - 32 mmol/L [facility] CALCIUM 8.3(L) 8.6 - 10.3 mg/dL [facility] PROTEIN, TOTAL 6.1 6.1 - 8.1 g/dL [facility] ALBUMIN 3.7 3.6 - 5.1 g/dL [facility] GLOBULIN 2.4 1.9 - 3.7 g/dL (calc) [facility] ALBUMIN/GLOBULI N RATIO 1.5 1.0 - 2.5 (calc) [facility] BILIRUBIN, TOTAL 0.4 0.2 - 1.2 mg/dL [facility] ALKALINE PHOSPHATASE 73 35 - 144 U/L [facility] AST 14 10 - 35 U/L [facility] ALT 3(L) 9 - 46 U/L [facility] Blood Blood / Unknown 11/16/2024 4 :42 PM EDT 11/16/2024 4:43 PM EDT Narrative [facility] - 11/18/2024 10:48 AM EDT FASTING:YES PATIENT UNABLE TO VOID; ADVISED TO RETURN FOR COLLECTION. Seven HARMANP LAB - BLOOD DRAW E dited Result - Final [facility] [address] [address], [employer] [address] [address] * HIV-1 & HIV-2 ANTIBODIES (09/29/2017 10:21 AM EDT) [facility] Signature HIV 1 AND 2 ANTIBODY SCREEN NEGATIVE NEGATIVE [facility] Comment: This assay is a 4th generation assay allowing for earlier detection of HIV infection by detecting the presence of the HIV-1 p24 antigen as well as the traditional antibodies to HIV type 1 (including group O) and type 2. Use of a 4th generation assay is the current CDC recommendation for HIV screening. Blood specimen (specimen) Blood / Unknown 09/29/2017 10:21 AM EDT 09/29/2017 10:27 AM EDT Narrative [facility] - 09/29/2017 3:30 PM EDT [facility] [employer] [address] [place] [address] [place] [id number] ORD# [id number] Matteo Kirkpatrick ONCOLOGY RN LAB - BLOOD DRAW Final Result Performing Organization Address City/[facility]/ZIP Co de Phone Number [address] [address], * COLONOSCOPY (12/11/2012) Provider Ochin PROCEDURES Final Result Performing Organization Address [facility]/ZIP Co de Phone Number [facility] [address] [place] [phone], from Last 3 Months or Most Recently Relevant to Health Maintenance Insurance [facility] Member Subscriber Plan / Payer (Ef fective 2018-Present) Name:Bear Manning Relation to Subscriber:Self Name:Bear Manning Payer ID:[id number] Group ID:Not on file Type:Medicare Address: [address] Care Teams Lidding Machine Operator Relationship Specialty Start Date End Date Seven Borrero FNP [address] [place] [address] PCP - General Family Medicine, PROMOTION MANAGER 05/22/20
--- OUTSIDE RECORDS SUMMARY | 2025-02-15 15:05 | XMS_ITS | Data Portability ---
Author Organization [facility], Main Office Address [address] [place] [address] Care Team Providers Care Nightclub Manager Name Role Phone JOSE SUNIL [facility] OTHER Assessment No assessment recorded. Plan of Treatment Reminders Order Date Submit Date Provider Last Modified By Organization Details Last Modified Time Details Appointments None record ed. Lab None record ed. Referral None record ed. Procedures None record ed. Surgeries None record ed. Imaging None record ed. Medication Orders None record ed. Patient TargetsNo targets recorded. Patient InstructionsNo instructions recorded. Reason for Referral None Reported. Problems Name Problem SNOMED Code Status Onset Date Resolution Date Notes Provider Name and Address Organization Details Recorded Time Pneumonia 713446366 Active 2022 CHING MEI [address] , [address], [place], [address], [facility] [address] 3 15:35:28 Parkinson's disease 67075674 Active 2022 CHING MEI [address], [address], [place], [address], [facility] [address] 3 15:35:37 Sepsis 05999682 Active 2022 CHING MEI [address], [address], [place], [address], [facility] [address] 3 15:35:54 Intravenous drug user 400218437 Active 2022 CHING MEI [address], [address], [place], [address], [facility] [address] 3 15:36:26 Essential hypertension 63093516 Active 2022 ERMIASDAVID LORENZ, [facility] [address] , [address], [place], [address], [facility] 3 15:36:40 Paranoid schizophrenia 59333261 Active 2022 ERMIASDAVID LORENZ, [facility] [address], [address], [place], [address], [facility] [employer] [facility] 3 15:36:54 Chronic obstructive pulmonary disease 28128121 Active 2022 ERMIAS LORENZ, [facility] [address], [address], [place], [address], [facility] [employer] [facility] 3 15:37:10 Neurocognitive disorder 770642703 Active 2022 ERMIAS LORENZ, [facility] [address], [address], [place], [address], [facility] [employer] [facility] 3 15:37:59 Mixed anxiety and depressive disorder 974658051 Active 2022 ERMIAS LORENZ, [address], [address], [place], [address], [facility] [employer] [facility] 3 15:57:02 Gastroesophage al reflux disease 593077462 Active 2022 ERMIAS LORENZ, [facility] [address], [address], [place], [address], [facility] [employer] [facility] 3 15:57:33 Vitamin deficiency 45617400 Active 2022 ERMIAS LORENZ, [address], [address], [place], [address], [facility] [employer] [facility] 3 16:07:19 Constipation 90110298 Active 2022 ERMIAS GERDA, [address], [address], [place], [address], [facility] Satya [employer] [facility] 3 16:08:00 Problem Notes None recorded. Medical Equipment None Reported. Allergies Allergen ID Allergen Name Allergen Category Reaction Reaction Severity Criticality Documentation Date Start Date Code Code System Note Provider Name and Address Organization Details Recorded Time 81111 morphine medicatio n Not available Not available Not available 02/06/2023 7052 RxNorm ERMIAS LORENZ [employer] [address] , [address], [place], [address], [facility] 16:03:26 Medications Name Sig Start Date Stop Date Status Note LastModified by Organization Details LastModified Time clonazepam 0.5 mg tablet TAKE 1 TAB BID AND 2 TABS AT BEDTIME 023 active Not Available Not Available Not Avai lable Vitals None Recorded Social History Question Answer Notes LastModified by Organizat [employer] Details LastModified Time Tobacco Smoking Status Former Smoker ERMIAS LORENZ CHING [address] , [address], [place], [address], [facility] 02/06/2023 16:25:23 Do You Have An Advance Directive? Yes Information not available 02/06/2023 What Is Your Level Of Caffeine Consumption? Occasional Information not available 02/06/2023 What Is Your Code Status? Full Code Information not available 02/06/2023 Do You Have A Medical Power Of Center Punch Operator? No Information not available 02/06/2023 What Was The Date Of Your Most Recent Tobacco Screening? 02/06/2023 Information not available 02/06/2023 Do You Have An Out Of Hospital DNR? No Information not available 02/06/2023 Have You Ever Been Counseled For Unhealthy Alcohol Use? No Information not available 02/06/2023 What Is Your Relationship Status? Information not available 02/06/2023 Has Tobacco Cessation Counseling Been Provided? No Information not available 02/06/2023 Have You Used IV Drugs? Yes Information not available 02/06/2023 Sex: Unknown Functional Status Question Answer Note LastModified by Organizat ion Details LastModified Time Do you use any illicit or recreational drugs? Yes hx of IV drug abuse Information not available 02/06/2023 Do you or have you ever used any other forms of tobacco or nicotine? No Information not available 02/06/2023 What is your level of alcohol consumption? Occasional Information not available 02/06/2023 Mental Status None recorded. Family History Nothing Reported. Medical History No medical history recorded. Immunizations Vaccine Type Date Status Note Provider Greg alfonso and Address Organization Details Recorded Time Influenza, adjuvanted, quadrivalent, PF 05/21/2023 completed Naomi alfaro [facility] 07/22/2023 09:58:02 COVID-19, mRNA, LNP-S, bivalent, PF, 30 mcg/0.3 mL dose 03/31/2023 completed Naomi alfaro [facility] 07/22/2023 09:58:41 Past Encounters Encounter ID Performer Location Encounter Start Date Encounter Closed Date Diagnosis/Indication Diagnosis SNOMED-CT Code Diagnosis ICD10 Code Diagnosis Note [id number] CHING MEI [facility] on [address] [place] [address] 02/06/2023 08:55:59 02/11/2023 16:07:[address] Scan Right lower lobe pneumonia: Treated with IV ceftriaxon e and azithromyc intransiti oned to augmentin- completed in hospitalPa carlos has history of aspiration monitor VS/ clinical sx changes. Parkinson's disease 4904 9000 G20 entacapone 200 mg 4 times a day ; Takes With the 1st 4 doses of Carbidopa- Levodopaca rbidopa-le vodopa 50 mg-200 mg 6 times a dayropinir ole 1 mg QIDPT/OT eval and tx Chronic ob structive pulmonary disease 11451336 J44.9 Albuterol 90 mcg 2 puff(s) Inhalation Every 6 hours as needed Wheezing/S hortness of Breathmoni tor for cliniocal sx changes Essential hypertension 12436152 I10 Metoprolol Succinate ER 50 mg 1 tab daily.Aspi rin 81 Milligram dailyfuros emide 40 mg dailyhydrA LAZINE 25 mg 4 times a daylisinop ril 20 mg dailymonit or VSmonitor for clinical sx changes Intravenous drug user 22 1542397 F19.10 Methadone 95 mg daily Neurocogni tive disorder 565983346 R41.9 HX parkinson disease Paranoid schizophrenia 06642501 F20.0 Trazadone 25 mg daily at hs clonazepam 0.5 mg BID 8 am & 2 pmClonazep am 1 mg daily at hsmonitor for clinical sx changes Mixed anxi ety and depressive disorder 210688266 F41.8 clonazepam 0.5 mg BID 8 am & 2 pmClonazep am 1 mg daily at hstrazadon e 25 mg daily at hs for insomniamo nitor for mood and behavior changes Gastroesop hageal reflux disease 786488244 K21.9 omeprazole 40 mg daily.leona tor for GI upset. Vitamin deficiency 66539 002 E56.9 Vitamin D3 2000 u DailyVitam in B12 250 mcg oral tablet DailyMulti vitamin 1 tab Dailymonit or labs Constipation 49086544 K5 9.00 Miralax 17 gram dailyencou raged fluidsmoni tor for clinical sx changes [id number] Alfonso Hoang MD [facility] [address] [place] [address] 02/10/2023 08:29:55 02/12/2023 15:59:23 Pneumonia 921612453 J15.8 see HPIImaging positive for RLLL pneumonia felt related to aspiration secondary to underlying parkinsons dx. Started on rocephin and zithromax, then transition ed to PO augmentin to complete 5 day coursemoni tor respirator y status and need for further imagingspe ech eval to determine need to adjust diet Parkinson's disease 4905 9000 G20 baseline parkinsons sinemet 50-200 mg 6x/dayenta william 200 mg qidmonitor for sx reliefupda te neurology with concerns Chronic ob structive pulmonary disease 35923357 J41.1 continue outpatient medsmonito r respirator y function with recent pneumoniam onitor respirator y status Essential hypertension 59261490 I10 Metoprolol 50 mg qdfurosemi de 40 mg qdhydralaz ine 25 mg qidlisinop ril 20 mg dailymonit or bp and need to titrate Intravenous drug user 22 1611310 F19.10 Methadone 95 mg qdcontinue coordinate with clinic Neurocogni tive disorder 419725395 R41.9 added to PMH Paranoid schizophrenia 88043126 F20.0 carrying dxnot maintained on antipsycho ticmonitor for behaviorsp sych eval prn Mixed anxi ety and depressive disorder 775472757 F41.8 clonazepam 0.5 mg BID 8 am & 2 pmClonazep am 1 mg qhs, 0.5 mg bidmonitor for effect and sedation Gastroesop hageal reflux disease 828261418 K21.9 omeprazole 40 mg qdmonitor for sx Constipation 13489940 K5 9.03 bowel protocolmo nitor for effect [id number] CHING MEI [facility] [address] [place] [address] 02/11/2023 10:28:19 02/13/2023 20:05:[address] Scan Right lower lobe pneumonia: Treated with IV ceftriaxon e and azithromyc intransiti oned to augmentin- completed in hospitalPa carlos has history of aspiration monitor VS/ clinical sx changes. Parkinson's disease 4904 9000 G20 entacapone 200 mg 4 times a day ; Takes With the 1st 4 doses of Carbidopa- Levodopaca rbidopa-le vodopa 50 mg-200 mg 6 times a dayropinir ole 1 mg QIDPT/OT eval and tx Chronic ob structive pulmonary disease 91525017 J44.9 Albuterol 90 mcg 2 puff(s) Inhalation Every 6 hours as needed Wheezing/S hortness of Breathmoni tor for clinical sx changes Essential hypertension 39905227 I10 Metoprolol Succinate ER 50 mg 1 tab daily.Aspi rin 81 Milligram dailyfuros emide 40 mg dailyhydrA LAZINE 25 mg 4 times a daylisinop ril 20 mg dailymonit or VSmonitor for clinical sx changes Intravenous drug user 22 1373752 F19.10 Methadone 95 mg daily Neurocogni tive disorder 713443226 R41.9 HX parkinson disease Paranoid schizophrenia 95878518 F20.0 monitor for clinical sx changesnot on anti-psych consult psych to eval and tx. Mixed anxi ety and depressive disorder 354480782 F41.8 clonazepam 0.5 mg BID 8 am & 2 pmClonazep am 1 mg daily at hstrazadon e 25 mg daily at hs for insomniamo nitor for mood and behavior changes Gastroesop hageal reflux disease 519642541 K21.9 omeprazole 40 mg daily.leona tor for GI upset. Vitamin deficiency 14987 002 E56.9 Vitamin D3 2000 u DailyVitam in B12 250 mcg oral tablet DailyMulti vitamin 1 tab Dailymonit or labs Constipation 25442409 K5 9.00 Miralax 17 gram dailyencou raged fluidsmoni tor for clinical sx changes [id number] CHING MEI [facility] [address] [place] [address] 02/18/2023 08:08:02 02/20/2023 16:04:21 Pneumonia 985924116 J18.9 02/18:LS are CTA, there is no resp distress. breathing easy and unlabored without cough. Ct Scan Right lower lobe pneumonia: Treated with IV ceftriaxon e and azithromyc intransiti oned to augmentin- completed in hospitalPa carlos has history of aspiration monitor VS/ clinical sx changes. Parkinson's disease 4904 9000 G20 entacapone 200 mg 4 times a day ; Takes With the 1st 4 doses of Carbidopa- Levodopaca rbidopa-le vodopa 50 mg-200 mg 6 times a dayropinir ole 1 mg QIDPT/OT eval and tx Chronic ob structive pulmonary disease 44782453 J44.9 Albuterol 90 mcg 2 puff(s) Inhalation Every 6 hours as needed Wheezing/S hortness of Breathmoni tor for clinical sx changes Essential hypertension 71520819 I10 Metoprolol Succinate ER 50 mg 1 tab daily.Aspi rin 81 Milligram dailyfuros emide 40 mg dailyhydrA LAZINE 25 mg 4 times a daylisinop ril 20 mg dailymonit or VSmonitor for clinical sx changes Intravenous drug user 22 5204839 F19.10 Methadone 95 mg daily Neurocogni tive disorder 847388555 R41.9 HX parkinson disease Paranoid schizophrenia 61080221 F20.0 monitor for clinical sx changesnot on anti-psych consult psych to eval and tx. Mixed anxi ety and depressive disorder 330345422 F41.8 02/18:There has been no reported behaviors. clonazepam 0.5 mg BID 8 am & 2 pmClonazep am 1 mg daily at hstrazadon e 25 mg daily at hs for insomniamo nitor for mood and behavior changes Gastroesop hageal reflux disease 299316898 K21.9 omeprazole 40 mg daily.leona tor for GI upset. Vitamin deficiency 27189 002 E56.9 Vitamin D3 2000 u DailyVitam in B12 250 mcg oral tablet DailyMulti vitamin 1 tab Dailymonit or labs Constipation 20918425 K5 9.00 Miralax 17 gram dailyencou raged fluidsmoni tor for clinical sx changes [id number] CHING MEI [facility] [address] [place] [address] 02/24/2023 11:34:25 02/26/2023 12:17:17 Pneumonia 726310095 J18.9 02/18:LS are CTA, there is no resp distress. breathing easy and unlabored without cough. Ct Scan Right lower lobe pneumonia: Treated with IV ceftriaxon e and azithromyc intransiti oned to augmentin- completed in hospitalPa carlos has history of aspiration monitor VS/ clinical sx changes. Parkinson's disease 4904 9000 G20 entacapone 200 mg 4 times a day ; Takes With the 1st 4 doses of Carbidopa- Levodopaca rbidopa-le vodopa 50 mg-200 mg 6 times a dayropinir ole 1 mg QIDPT/OT eval and tx Chronic ob structive pulmonary disease 75188181 J44.9 Albuterol 90 mcg 2 puff(s) Inhalation Every 6 hours as needed Wheezing/S hortness of Breathmoni tor for clinical sx changes Essential hypertension 06353516 I10 Metoprolol Succinate ER 50 mg 1 tab daily.Aspi rin 81 Milligram dailyfuros emide 40 mg dailyhydrA LAZINE 25 mg 4 times a daylisinop ril 20 mg dailymonit or VSmonitor for clinical sx changes Intravenous drug user 22 7229359 F19.10 Methadone 95 mg daily Neurocogni tive disorder 314038131 R41.9 HX parkinson disease Paranoid schizophrenia 49724435 F20.0 monitor for clinical sx changesnot on anti-psych consult psych to eval and tx. Mixed anxi ety and depressive disorder 642965462 F41.8 02/24: He is sad today grand-daug hter dx with cancer, will refer to . clonazepam 0.5 mg BID 8 am & 2 pmClonazep am 1 mg daily at hstrazadon e 25 mg daily at hs for insomniamo nitor for mood and behavior changes Gastroesop hageal reflux disease 302751476 K21.9 omeprazole 40 mg daily.leona tor for GI upset. Vitamin deficiency 91162 002 E56.9 Vitamin D3 2000 u DailyVitam in B12 250 mcg oral tablet DailyMulti vitamin 1 tab Dailymonit or labs Constipation 22393568 K5 9.00 Miralax 17 gram dailyencou raged fluidsmoni tor for clinical sx changes [id number] CHING MEI [facility] [address] [place] [address] 02/25/2023 17:54:34 03/06/2023 16:28:30 Pain of bilateral knee regions 0650236831 20301 M25.561 M25.562 s/p fall on 02/24reports being sore not painful, from hitting floor+ ROMdeclini ng xrays at this time.PRN apap as needed encouraged . [id number] CHING MEI [facility] on [address] [place] [address] 03/03/2023 08:21:45 03/12/2023 16:16:12 Pain of bilateral knee regions 6452534860 39695 M25.561 M25.562 03/03: there is reported pain, states his knees are ok.s/p fall on 02/24reports being sore not painful, from hitting floor+ ROMdeclini ng xrays at this time.PRN apap as needed encouraged . Pneumonia 590150755 J18. [address] Right lower lobe pneumonia: Treated with IV ceftriaxon e and azithromyc intransiti oned to augmentin- completed in hospitalPa suzynt has history of aspiration monitor VS/ clinical sx changes. Parkinson's disease 4904 9000 G20 entacapone 200 mg 4 times a day ; Takes With the 1st 4 doses of Carbidopa- Levodopaca rbidopa-le vodopa 50 mg-200 mg 6 times a dayropinir ole 1 mg QIDPT/OT eval and tx Chronic ob structive pulmonary disease 26854355 J44.9 Albuterol 90 mcg 2 puff(s) Inhalation Every 6 hours as needed Wheezing/S hortness of Breathmoni tor for clinical sx changes Essential hypertension 14291640 I10 Metoprolol Succinate ER 50 mg 1 tab daily.Aspi rin 81 Milligram dailyfuros emide 40 mg dailyhydrA LAZINE 25 mg 4 times a daylisinop ril 20 mg dailymonit or VSmonitor for clinical sx changes Intravenous drug user 22 1544053 F19.10 Methadone 95 mg daily Neurocogni tive disorder 979770812 R41.9 HX parkinson disease Paranoid schizophrenia 46534081 F20.0 monitor for clinical sx changesnot on anti-psych consult psych to eval and tx. Mixed anxi ety and depressive disorder 911123005 F41.8 stable. clonazepam 0.5 mg BID 8 am & 2 pmClonazep am 1 mg daily at hstrazadon e 25 mg daily at hs for insomniamo nitor for mood and behavior changes Gastroesop hageal reflux disease 126329858 K21.9 omeprazole 40 mg daily.leona tor for GI upset. Vitamin deficiency 69936 002 E56.9 Vitamin D3 2000 u DailyVitam in B12 250 mcg oral tablet DailyMulti vitamin 1 tab Dailymonit or labs Constipation 33948538 K5 9.00 Miralax 17 gram dailyencou raged fluidsmoni tor for clinical sx changes [id number] CHING MEI [facility] [address] [place] [address] 03/12/2023 08:55:11 03/25/2023 15:36:22 Pain of bilateral knee regions 6216789428 26479 M25.561 M25.562 03/12: offers no complaints .03/03: there is reported pain, states his knees are ok.s/p fall on 02/24reports being sore not painful, from hitting floor+ ROMdeclini ng xrays at this time.PRN apap as needed encouraged . Pneumonia 366928418 J18. [address] Scan Right lower lobe pneumonia: Treated with IV ceftriaxon e and azithromyc intransiti oned to augmentin- completed in hospitalPa tient has history of aspiration monitor VS/ clinical sx changes. Parkinson's disease 4907 9000 G20 entacapone 200 mg 4 times a day ; Takes With the 1st 4 doses of Carbidopa- Levodopaca rbidopa-le vodopa 50 mg-200 mg 6 times a dayropinir ole 1 mg QIDPT/OT eval and tx Chronic ob structive pulmonary disease 27217028 J44.9 Albuterol 90 mcg 2 puff(s) Inhalation Every 6 hours as needed Wheezing/S hortness of Breathmoni tor for clinical sx changes Essential hypertension 99564835 I10 Metoprolol Succinate ER 50 mg 1 tab daily.Aspi rin 81 Milligram dailyfuros emide 40 mg dailyhydrA LAZINE 25 mg 4 times a daylisinop ril 20 mg dailymonit or VSmonitor for clinical sx changes Intravenous drug user 22 0005639 F19.10 Methadone 95 mg daily Neurocogni tive disorder 328472416 R41.9 HX parkinson disease Paranoid schizophrenia 61910465 F20.0 monitor for clinical sx changesnot on anti-psych consult psych to eval and tx. Mixed anxi ety and depressive disorder 515688550 F41.8 stable. clonazepam 0.5 mg BID 8 am & 2 pmClonazep am 1 mg daily at hstrazadon e 25 mg daily at hs for insomniamo nitor for mood and behavior changes Gastroesop hageal reflux disease 364122403 K21.9 omeprazole 40 mg daily.leona tor for GI upset. Vitamin deficiency 35824 002 E56.9 Vitamin D3 2000 u DailyVitam in B12 250 mcg oral tablet DailyMulti vitamin 1 tab Dailymonit or labs Constipation 60436448 K5 9.00 Miralax 17 gram dailyencou raged fluidsmoni tor for clinical sx changes Weight loss 60773599 R63 .4 Recent 8lb weight loss in 1 monthdieti luna saini [employer] reports eating all his meals, he states eating habits different( healthier) during this stay., [id number] CHING MEI [facility] [address] [place] [address] 03/18/2023 09:57:14 03/25/2023 15:58:14 Weight loss 33837535 R63.4 Recent 8lb weight loss in 1 monthstart ed on health shakes TID.will monitor weight. Pneumonia 857548810 J18. [address] Scan Right lower lobe pneumonia: Treated with IV ceftriaxon e and azithromyc intransiti oned to augmentin- completed in hospitalPa carlos has history of aspiration monitor VS/ clinical sx changes. Parkinson's disease 4904 9000 G20 entacapone 200 mg 4 times a day ; Takes With the 1st 4 doses of Carbidopa- Levodopaca rbidopa-le vodopa 50 mg-200 mg 6 times a dayropinir ole 1 mg QIDPT/OT eval and tx Chronic ob structive pulmonary disease 75534750 J44.9 Albuterol 90 mcg 2 puff(s) Inhalation Every 6 hours as needed Wheezing/S hortness of Breathmoni tor for clinical sx changes Essential hypertension 71607829 I10 Metoprolol Succinate ER 50 mg 1 tab daily.Aspi rin 81 Milligram dailyfuros emide 40 mg dailyhydrA LAZINE 25 mg 4 times a daylisinop ril 20 mg dailymonit or VSmonitor for clinical sx changes Intravenous drug user 22 6289075 F19.10 Methadone 95 mg daily. Neurocogni tive disorder 295902474 R41.9 HX parkinson disease Paranoid schizophrenia 48050123 F20.0 monitor for clinical sx changesnot on anti-psych consult psych to eval and tx. Mixed anxi ety and depressive disorder 660479648 F41.8 stable.mohit nazepam 0.5 mg BID 8 am & 2 pmClonazep am 1 mg daily at hstrazadon e 25 mg daily at hs for insomniamo nitor for mood and behavior changes Gastroesop hageal reflux disease 083515082 K21.9 omeprazole 40 mg daily.leona tor for GI upset. Vitamin deficiency 01924 002 E56.9 Vitamin D3 2000 u DailyVitam in B12 250 mcg oral tablet DailyMulti vitamin 1 tab Dailymonit or labs Constipation 37274118 K5 9.00 Miralax 17 gram dailyencou raged fluidsmoni tor for clinical sx changes [id number] CHING MEI [facility] on [address] [place] [address] 03/28/2023 08:30:17 04/02/2023 15:55:12 Weight loss 74555094 R63.4 weight order for 03/31/23 and then monthlyRec ent 8lb weight loss in 1 monthstart ed on health shakes TID.will monitor weight. Pneumonia 686362016 J18. [address] Scan Right lower lobe pneumonia: Treated with IV ceftriaxon e and azithromyc intransiti oned to augmentin- completed in hospitalPa carlos has history of aspiration monitor VS/ clinical sx changes. Parkinson's disease 4904 9000 G20 entacapone 200 mg 4 times a day ; Takes With the 1st 4 doses of Carbidopa- Levodopaca rbidopa-le vodopa 50 mg-200 mg 6 times a dayropinir ole 1 mg QIDPT/OT eval and tx Chronic ob structive pulmonary disease 98370654 J44.9 Albuterol 90 mcg 2 puff(s) Inhalation Every 6 hours as needed Wheezing/S hortness of Breathmoni tor for clinical sx changes Essential hypertension 02811204 I10 Metoprolol Succinate ER 50 mg 1 tab daily.Aspi rin 81 Milligram dailyfuros emide 40 mg dailyhydrA LAZINE 25 mg 4 times a daylisinop ril 20 mg dailymonit or VSmonitor for clinical sx changes Intravenous drug user 22 3906246 F19.10 Methadone 95 mg daily. Neurocogni tive disorder 663028077 R41.9 HX parkinson disease Paranoid schizophrenia 10675328 F20.0 monitor for clinical sx changesnot on anti-psych consult psych to eval and tx. Mixed anxi ety and depressive disorder 876793386 F41.8 stable.mohit nazepam 0.5 mg BID 8 am & 2 pmClonazep am 1 mg daily at hstrazadon e 25 mg daily at hs for insomniamo nitor for mood and behavior changes Gastroesop hageal reflux disease 741586653 K21.9 omeprazole 40 mg daily.leona tor for GI upset. Vitamin deficiency 47172 002 E56.9 Vitamin D3 2000 u DailyVitam in B12 250 mcg oral tablet DailyMulti vitamin 1 tab Dailymonit or labs Constipation 10268111 K5 9.00 Miralax 17 gram dailyencou raged fluidsmoni tor for clinical sx changes [id number] CHING MEI [facility] on [address] [place] [address] 04/03/2023 11:13:57 04/08/2023 14:59:55 Weight loss 82106589 R63.4 weight on admit was 248 as of 03/31 noted 218 weight order for 03/31/23 and then monthlyRec ent 8lb weight loss in 1 monthstart ed on scenios shakes TID.will monitor weight. Parkinson's disease 4904 9000 G20 entacapone 200 mg 4 times a day ; Takes With the 1st 4 doses of Carbidopa- Levodopaca rbidopa-le vodopa 50 mg-200 mg 6 times a dayropinir ole 1 mg QIDPT/OT eval and tx Chronic ob structive pulmonary disease 82622521 J44.9 stableAlbu terol 90 mcg 2 puff(s) Inhalation Every 6 hours as needed Wheezing/S hortness of Breathmoni tor for clinical sx changes Essential hypertension 44521636 I10 Metoprolol Succinate ER 50 mg 1 tab daily.Aspi rin 81 Milligram dailyfuros emide 40 mg dailyhydrA LAZINE 25 mg 4 times a daylisinop ril 20 mg dailymonit or VSmonitor for clinical sx changes Intravenous drug user 22 [id number] F19.10 Methadone 95 mg daily. Neurocogni tive disorder 076015220 R41.9 HX parkinson disease Paranoid schizophrenia 92190899 F20.0 monitor for clinical sx changesnot on anti-psych consult psych to eval and tx. Mixed anxi ety and depressive disorder 218502586 F41.8 stable.mohit nazepam 0.5 mg BID 8 am & 2 pmClonazep am 1 mg daily at hstrazadon e 25 mg daily at hs for insomniamo nitor for mood and behavior changes Gastroesop hageal reflux disease 449335615 K21.9 omeprazole 40 mg daily.leona tor for GI upset. Vitamin deficiency 64164 002 E56.9 Vitamin D3 2000 u DailyVitam in B12 250 mcg oral tablet DailyMulti vitamin 1 tab Dailymonit or labs Constipation 34783600 K5 9.00 Miralax 17 gram dailyencou raged fluidsmoni tor for clinical sx changes [id number] CHING MEI [facility] on [address] [place] [address] 04/09/2023 08:43:40 04/15/2023 21:03:23 Weight loss [id number] R63.4 weight on admit was 248 as of 03/31 noted 218weight order for 03/31/23 and then monthlyRec ent 8lb weight loss in 1 monthstart ed on scenios shakes TID.will monitor weight. Parkinson's disease 4904 9000 G20 entacapone 200 mg 4 times a day ; Takes With the 1st 4 doses of Carbidopa- Levodopaca rbidopa-le vodopa 50 mg-200 mg 6 times a dayropinir ole 1 mg QIDPT/OT eval and tx Chronic ob structive pulmonary disease 31955429 J44.9 stableAlbu terol 90 mcg 2 puff(s) Inhalation Every 6 hours as needed Wheezing/S hortness of Breathmoni tor for clinical sx changes Essential hypertension 92700398 I10 Metoprolol Succinate ER 50 mg 1 tab daily.Aspi rin 81 Milligram dailyfuros emide 40 mg dailyhydrA LAZINE 25 mg 4 times a daylisinop ril 20 mg dailymonit or VSmonitor for clinical sx changes Intravenous drug user 22 3772455 F19.10 Methadone 95 mg daily. 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 Mixed anxi ety and depressive disorder 525528139 F41.8 stable.mohit nazepam 0.5 mg BID 8 am & 2 pmClonazep am 1 mg daily at hstrazadon e 25 mg daily at hs for insomniamo nitor for mood and behavior changes Gastroesop hageal reflux disease 335226236 K21.9 omeprazole 40 mg daily.leona tor for GI upset. Vitamin deficiency 01841 002 E56.9 Vitamin D3 2000 u DailyVitam in B12 250 mcg oral tablet DailyMulti vitamin 1 tab Dailymonit or labs Constipation 15280685 K5 9.00 Miralax 17 gram dailyencou raged fluidsmoni tor for clinical sx changes Fall W19.XXXA 04/08/23den ies any pain or discomfort no obvious injuries notedmonit or per facility protocol [id number] CHING MEI [facility] on [address] [place] [address] 04/16/2023 07:07:07 04/23/2023 11:04:50 Weight loss 61526487 R63.4 04/16: weight noted in [facility] 229 ? 11 lb weight gain, he has been drinking shakes.rosaura ght on admit was 248 as of 03/31 noted 218started on health shakes TID.will monitor weight. Parkinson's disease 4904 9000 G20 04/16: stableenta william 200 mg 4 times a day ; Takes With the 1st 4 doses of Carbidopa- Levodopaca rbidopa-le vodopa 50 mg-200 mg 6 times a dayropinir ole 1 mg QIDPT/OT eval and tx Chronic ob structive pulmonary disease 39660686 J44.9 04/16: There has been no reported resp. concerns.s tableAlbut maria victoria 90 mcg 2 puff(s) Inhalation Every 6 hours as needed Wheezing/S hortness of Breathmoni tor for clinical sx changes Essential hypertension 11800682 I10 stable.Met oprolol Succinate ER 50 mg 1 tab daily.Aspi rin 81 Milligram dailyfuros emide 40 mg dailyhydrA LAZINE 25 mg 4 times a daylisinop ril 20 mg dailymonit or VSmonitor for clinical sx changes Intravenous drug user 22 6683196 F19.10 Methadone 95 mg daily. Neurocogni tive disorder 112771786 R41.9 HX parkinson disease Paranoid schizophrenia 87494688 F20.0 04/16: He has been stable, there has been no behavioral concerns.m onitor for clinical sx changesnot on anti-psych consult psych to eval and tx. Mixed anxi ety and depressive disorder 275555897 F41.8 stable.mohit nazepam 0.5 mg BID 8 am & 2 pmClonazep am 1 mg daily at hstrazadon e 25 mg daily at hs for insomniamo nitor for mood and behavior changes Gastroesop hageal reflux disease 914002237 K21.9 omeprazole 40 mg daily.leona tor for GI upset. Vitamin deficiency 14290 002 E56.9 Vitamin D3 2000 u DailyVitam in B12 250 mcg oral tablet DailyMulti vitamin 1 tab Dailymonit or labs Constipation 09988125 K5 9.00 Miralax 17 gram dailyencou raged fluidsmoni tor for clinical sx changes Fall W19.XXXA 04/08/23den ies any pain or discomfort no obvious injuries notedmonit or per facility protocol [id number] Santa Hargrove MD [facility] on [address] [place] [address] 04/25/2023 07:42:48 05/01/2023 11:33:01 Paranoid schizophrenia 00091354 F20.0 trazodone 25 mg qhs prnclonaze cristel 0.5 mg bid and 1 mg at hswill monitorHDB H prn Parkinson's disease 4904 9000 G20.A2 entacapone 200 mg qidcarbido pa-levodop a ER 50-200 5 times a dayropinir ole 1 mg qidfu neurology prnwill monitor Opioid dependence 046916 00 F11.20 methadone 95 mg dailyfu methadone clinicwill monitor Chronic ob structive pulmonary disease 68635691 J41.0 albuterol HFA: 2 puffs q6h prnwill monitor Gastroesop hageal reflux disease 982751715 K21.9 omeprazole 40 mg dailywill monitor Essential hypertension 13099352 I10 hydralazin e 25 mg qidfurosem jolene 40 mg dailylisin opril 20 mg dailymetop rolol ER 50 mg dailywill monitor [id number] CHING MEI [facility] on [address] [place] [address] 05/01/2023 08:45:56 05/05/2023 15:26:30 Paranoid schizophrenia 92408141 F20.0 stabletraz odone 25 mg qhs prnclonaze cristel 0.5 mg bid and 1 mg at hswill monitorHDB H prn Parkinson's disease 4904 9000 G20.A2 entacapone 200 mg qidcarbido pa-levodop a ER 50-200 5 times a dayropinir ole 1 mg qidfu neurology prnwill monitor Opioid dependence 009786 00 F11.20 methadone 95 mg dailyfu methadone clinicwill monitor Chronic ob structive pulmonary disease 27041157 J41.0 there has been no reported resp. issuesalbu terol HFA: 2 puffs q6h prnwill monitor Gastroesop hageal reflux disease 666211466 K21.9 no reported GI upset.omep razole 40 mg dailywill monitor Essential hypertension 95064923 I10 stable.hyd ralazine 25 mg qidfurosem jolene 40 mg dailylisin opril 20 mg dailymetop rolol ER 50 mg dailywill monitor [id number] CHING MEI [facility] on [address] [place] [address] 05/08/2023 10:37:42 05/13/2023 10:52:40 Paranoid schizophrenia 03296930 F20.0 mood has been stable. no paranoia or psychosis reported.t razodone 25 mg qhs prnclonaze cristel 0.5 mg bid and 1 mg at hswill monitorHDB H prn Parkinson's disease 4904 9000 G20.A2 baseline slight tremor noted at times.enta william 200 mg qidcarbido pa-levodop a ER 50-200 5 times a dayropinir ole 1 mg qidfu neurology prnwill monitor Opioid dependence 026019 00 F11.20 methadone 95 mg dailyfu methadone clinicwill monitor Chronic ob structive pulmonary disease 29714470 J41.0 breathing is easy and unlaboredt here has been no reported resp. issuesalbu terol HFA: 2 puffs q6h prnwill monitor Gastroesop hageal reflux disease 854504399 K21.9 no reported GI upset.omep razole 40 mg dailywill monitor Essential hypertension 46746823 I10 stable.hyd ralazine 25 mg qidfurosem jolene 40 mg dailylisin opril 20 mg dailymetop rolol ER 50 mg dailywill monitor [id number] CHING MEI [facility] on [address] [place] [address] 05/14/2023 16:42:48 05/22/2023 15:40:35 Paranoid schizophrenia 70973410 F20.0 stabletraz odone 25 mg qhs prnclonaze cristel 0.5 mg bid and 1 mg at hswill monitorHDB H prn Parkinson's disease 4904 9000 G20.A2 baseline slight tremor noted at times.enta william 200 mg qidcarbido pa-levodop a ER 50-200 5 times a dayropinir ole 1 mg qidfu neurology prnwill monitor Opioid dependence 789878 00 F11.20 methadone 95 mg dailyfu methadone clinicwill monitor Chronic ob structive pulmonary disease 69217466 J41.0 stablebrea thing is easy and unlaboredt here has been no reported resp. issuesalbu terol HFA: 2 puffs q6h prnwill monitor Gastroesop hageal reflux disease 075105468 K21.9 no reported GI upset.omep razole 40 mg dailywill monitor Essential hypertension 06939544 I10 stable.hyd ralazine 25 mg qidfurosem jolene 40 mg dailylisin opril 20 mg dailymetop rolol ER 50 mg dailywill monitor [id number] CHING MEI [facility] on [address] [place] [phone] 05/26/2023 07:44:12 05/28/2023 15:17:45 Paranoid schizophrenia 34126427 F20.0 stabletraz odone 25 mg qhs prnclonaze cristel 0.5 mg bid and 1 mg at hswill monitorHDB H prn Parkinson's disease 4904 9000 G20.A2 baseline slight tremor noted at times.enta william 200 mg qidcarbido pa-levodop a ER 50-200 5 times a dayropinir ole 1 mg qidfu neurology prnwill monitor Opioid dependence 901298 00 F11.20 methadone 95 mg dailyfu methadone clinicwill monitor Chronic ob structive pulmonary disease 97483907 J41.0 stablebrea thing is easy and unlaboredt here has been no reported resp. issuesalbu terol HFA: 2 puffs q6h prnwill monitor Gastroesop hageal reflux disease 363770318 K21.9 no reported GI upset.omep razole 40 mg dailywill monitor Essential hypertension 06964499 I10 stable.hyd ralazine 25 mg qidfurosem jolene 40 mg dailylisin opril 20 mg dailymetop rolol ER 50 mg dailywill monitor [id number] CHING MEI [facility] on [address] [place] [address] 06/09/2023 11:03:06 06/11/2023 13:20:55 Paranoid schizophrenia 58677116 F20.0 continue:t razodone 25 mg qhs prnclonaze cristel 0.5 mg bid and 1 mg at hswill monitorFol low up with PCP prn Parkinson's disease 4904 9000 G20.A2 baseline slight tremorCont inue:entac apone 200 mg qidcarbido pa-levodop a ER 50-200 5 times a dayropinir ole 1 mg qidfu neurology prnFollow up with PCP prn Opioid dependence 589055 00 F11.20 methadone 95 mg daily Chronic ob structive pulmonary disease 57013779 J41.0 albuterol HFA: 2 puffs q6h prnFollow up with PCP prn Gastroesop hageal reflux disease 224250405 K21.9 continueom eprazole 40 mg ER dailyFollo w up with PCP prn Essential hypertension 48374368 I10 continue:h ydralazine 25 mg qidfurosem jolene 40 mg dailylisin opril 20 mg dailymetop rolol ER 50 mg dailyFollo w up with PCP prn Health Concerns Section Related Observation LastModified by Organization Detai ls LastModified Time None Recorded Concern Status LastModified by Organization Details LastModified Time None Recorded Advance Directives Directive Y: Payers Insurance Date Sequence Insurance Name Policy Number Policy Blanchard Covered Member ID Blanchard Member ID Guarantor Name 12/29/2023 1 [facility] - DOS ON OR AFTER 2022 - MEDICARE ADVANTAGE [place] (MEDICARE REPLACEMENT/ADV ANTAGE - PPO) Bear Manning [id number] Bear Manning
--- OUTSIDE RECORDS SUMMARY | 2025-02-15 15:06 | XMS_ITS | Clinical Summary ---
Author Organization [facility] Address [address] [place] [address] Care Team Providers Care [employer] Service [employer] Operator Name Role Phone Unavailable Primary Care Provider Unavailabl e Social History Tobacco Use Types Packs/Day Years Used Date Smoking Tobacco: Never Assessed Sex and Gender Information Value Date Recorded Sex Assigned at Not on file Legal Sex Male 10:29 PM EST Gender Identity Not on file Sexual Orientation Not on file Last Filed Vital Signs Vital Sign Reading Time Taken Comments Blood Pressure - - Pulse - - Temperature - - Respiratory Rate - - Oxygen Saturation - - Inhaled Oxygen Concentration - - Weight 122 kg (269 lb) 01/07/2022 3:11 PM EDT Height 182.9 cm (6') 01/07/2022 3:11 PM EDT Body Mass Index 36.48 01/07/2022 3:11 PM EDT Plan of Treatment Health Maintenance Due Date Last Done Comments DTaP,Tdap,and Td Vaccines (1 - Tdap) 09/18/1978 Pneumococcal Vaccine: 50+ Ye ars (1 of 1 - PCV) 09/18/2009 Zoster Vaccines (1 of 2) 09/18/2009 COVID-19 Vaccine ( - 2023-2 5 season) 2024 Depression Screening 07/21/2024 Influenza Vaccine (#1) 2025 RSV Immunization Adult Patie nts (1 - 1-dose 75+ series) 09/18/2034 HIB Vaccines Aged Out No longer eligi ble based on patient's age to complete this topic HPV Vaccines Aged Out No longer eligi ble based on patient's age to complete this topic Hepatitis A Vaccines Aged Out No long er eligible based on patient's age to complete this topic Hepatitis B Vaccines Aged Out No long er eligible based on patient's age to complete this topic IPV Vaccines Aged Out No longer eligi ble based on patient's age to complete this topic MMR Vaccines Aged Out No longer eligi ble based on patient's age to complete this topic Meningococcal ACWY Vaccine Aged Out N o longer eligible based on patient's age to complete this topic Meningococcal B Vaccine Aged Out No l onger eligible based on patient's age to complete this topic RSV Immunization Patients Un sondra 20 months Aged Out No longer eligible b ased on patient's age to complete this topic Varicella Vaccines Aged Out No longer eligible based on patient's age to complete this topic
== END 2025-02-15 15:32 | disposition home or self-care (01) ==
PROVIDERS: PCP Nurse Practitioner Family; Visit Provider Nurse Practitioner Family
DX: G20.B2 Parkinson's disease with dyskinesia, with fluctuations (principal); R20.2 Paresthesia of skin; R29.898 Other symptoms and signs involving the musculoskeletal system; R26.9 Unspecified abnormalities of gait and mobility; R44.3 Hallucinations, unspecified; K59.00 Constipation, unspecified; R13.10 Dysphagia, unspecified
CPT/HCPCS: 99214

== ENCOUNTER → 2025-03-08 23:59 | Outpatient (BNV) | payer OTHER, SELFPAY | PROVIDERS: PCP Nurse Practitioner Family; Visit Provider Psychiatry & Neurology Neurology | DX: G20.B2 Parkinson's disease with dyskinesia, with fluctuations (principal); F11.10 Opioid abuse, uncomplicated; R27.8 Other lack of coordination | CPT/HCPCS: G0179 ==

== ENCOUNTER → 2025-05-31 23:59 | Outpatient (BNV) | payer OTHER, SELFPAY | PROVIDERS: PCP Nurse Practitioner Family; Visit Provider Psychiatry & Neurology Neurology | DX: G20.B2 Parkinson's disease with dyskinesia, with fluctuations (principal); F11.10 Opioid abuse, uncomplicated; F06.70 Mild neurocognitive disorder due to known physiological condition without behavioral disturbance | CPT/HCPCS: G0179 ==

== ENCOUNTER → 2025-06-21 23:59 | Outpatient (BNV) | payer OTHER, SELFPAY | PROVIDERS: PCP Nurse Practitioner Family; Visit Provider Psychiatry & Neurology Neurology | DX: F11.10 Opioid abuse, uncomplicated (principal); R13.12 Dysphagia, oropharyngeal phase | CPT/HCPCS: G0179 ==